=== PATIENT | male | born 1970 | race Caucasian/White ===

== ENCOUNTER 2024-12-20 16:52 | Emergency (ER) | payer MEDICAID ==
[~2024-12-20] VITALS: Ht 170.2 cm; Wt 88.0 kg
[2024-12-20 16:55] VITALS: O2SAT 96
[2024-12-20 17:31] LABS: CLARITY URINE CLEAR (CLEAR); COLOR URINE YELLOW (YELLOW); GLUCOSE URINE NEGATIVE (NEGATIVE); KETONES URINE NEGATIVE (NEGATIVE); LEUKOCYTE ESTERASE URINE NEGATIVE (NEGATIVE); NITRITE URINE NEGATIVE (NEGATIVE); OCCULT BLOOD URINE NEGATIVE (NEGATIVE); PH URINE 5.5 (4.5-8.0); PROTEIN URINE NEGATIVE (NEGATIVE); SPECIFIC GRAVITY URINE 1.003 (1.005-1.030); UROBILINOGEN URINE 0.2 E.U./dL (0.2-1.0)
[2024-12-20 17:43] LABS: *AMPHETAMINES SCREEN URINE NEGATIVE (NEGATIVE); *BARBITURATES SCREEN URINE NEGATIVE (NEGATIVE); *BENZODIAZEPINES SCREEN URINE NEGATIVE (NEGATIVE); *COCAINE SCREEN URINE NEGATIVE (NEGATIVE)
[2024-12-20 17:44] LABS: CANNABINOID URINE SCREEN NEGATIVE (NEGATIVE); ECSTASY MDMA SCREEN URINE NEGATIVE (NEGATIVE); METHADONE URINE SCREEN NEGATIVE (NEGATIVE); OPIATES URINE SCREEN NEGATIVE (NEGATIVE); PHENCYCLIDINE URINE SCREEN NEGATIVE (NEGATIVE)
[2024-12-20] MEDS: SODIUM CHLORIDE 0.9% 1,000 ML IV ONE (18:02)
[2024-12-20] MEDS: KETOROLAC 30MG/ML VIAL IV STA (18:03)
[2024-12-20] MEDS: ACETAMINOPHEN 325MG TABLET PO STA (18:03)
[2024-12-20] MEDS: ONDANSETRON HCL 4MG/2ML INJ IV STA (18:03)
[2024-12-20 18:11] LABS: BASOPHILS % 0.6 % (0.0-2.0); EOSINOPHILS % 3.8 % (0.0-5.0); HEMATOCRIT. 42.2 % (42.0-52.0); HEMOGLOBIN. 14.6 g/dL (14.0-18.0); LYMPHOCYTES % 35.5 % (20.0-50.0); MEAN CORPUSCULAR HEMOGLOBIN 30.6 pg (28.0-32.0); MEAN CORPUSCULAR HGB CONC 34.6 g/dL (31.0-37.0); MEAN CORPUSCULAR VOLUME 88.5 fL (80.0-94.0); MEAN PLATELET VOLUME 6.8 fl (7.4-10.4); MONOCYTES % 7.8 % (2.0-8.0); NEUTROPHILS % 52.3 % (40.0-76.0); PLATELET 250 x1000/uL (130-400); RED BLOOD CELL COUNT 4.77 mill/uL (4.7-6.1); RED CELL DISTRIBUTION WIDTH 14.1 % (11.6-14.6); WHITE BLOOD COUNT 8.3 x1000/uL (4.5-11.0)
[2024-12-20 18:29] LABS: CHLORIDE 100 mEq/L (98-107); POTASSIUM 3.5 mEq/L (3.5-5.1); SODIUM 138 mEq/L (136-145)
[2024-12-20 18:30] LABS: CARBON DIOXIDE 25 mEq/L (21-32)
[2024-12-20 18:31] LABS: CALCIUM 9.1 mg/dL (8.7-10.4)
[2024-12-20 18:35] LABS: CREATININE 0.7 mg/dL (0.6-1.3); GLUCOSE 106 mg/dL (70-105)
[2024-12-20 18:36] LABS: ETHANOL BLOOD 278 mg/dL (<10); TROPONIN I HIGH SENSITIVITY 4 ng/L (3.0-53); UREA NITROGEN BLOOD 11 mg/dL (9-23)
[2024-12-20 18:37] LABS: ACETAMINOPHEN < 2 ug/mL (10-30)
[2024-12-20 20:15] LABS: TROPONIN I HIGH SENSITIVITY 4 ng/L (3.0-53)
[2024-12-21] MEDS: NITROGLYCERIN 0.4MG TABLET SL SL ONE (20:15)
[2024-12-21] MEDS: QUETIAPINE FUMARATE 50MG TABLET PO SCH (21:24)
[2024-12-21 23:14] VITALS: BP 135/87; PULSE 88; RESP 20; TEMP 36.8; O2SAT 97
== END 2024-12-21 23:49 ==
LOC: ER 16:52
DX: R45.851 Suicidal ideations (principal); F20.9 Schizophrenia, unspecified; F32.A Depression, unspecified; I10 Essential (primary) hypertension; Z79.899 Other long term (current) drug therapy; Z87.19 Personal history of other diseases of the digestive system; Z20.822 Contact with and (suspected) exposure to COVID-19
CPT/HCPCS: 80305; 80048; 81003; 80307; 80329; 80320 ×2; 83690; 85025; 84484; 36415 ×2; 74176; 93005; 96361; 96374; 96375; 99285; 87426; J1885; J2405; J7030; Z7610 ×4; A4606; G0480

== ENCOUNTER 2025-01-22 22:45 | Emergency (ER) | payer MEDICAID ==
[~2025-01-22] VITALS: Ht 160 cm; Wt 70.0 kg
[2025-01-22 23:07] VITALS: O2SAT 98
[2025-01-22] MEDS: KETOROLAC 30MG/ML VIAL IV STA (23:18)
[2025-01-22] MEDS: ONDANSETRON HCL 4MG/2ML INJ IV STA (23:18)
[2025-01-22] MEDS ORDERED: LORAZEPAM 2MG/ML INJ IM ONE (23:30)
[2025-01-22] MEDS: HALOPERIDOL LACTATE 5MG/ML VIAL IM ONE (23:30)
[2025-01-22] MEDS: DIPHENHYDRAMINE 50MG/ML VIAL IM ONE (23:30)
[2025-01-22] MEDS: LORAZEPAM 2MG/ML UD SYRINGE IM NR (23:45)
[2025-01-23 00:10] LABS: BASOPHILS % 0.9 % (0.0-2.0); EOSINOPHILS % 3.5 % (0.0-5.0); HEMATOCRIT. 44.4 % (42.0-52.0); HEMOGLOBIN. 15.6 g/dL (14.0-18.0); LYMPHOCYTES % 22.5 % (20.0-50.0); MEAN CORPUSCULAR HEMOGLOBIN 31.8 pg (28.0-32.0); MEAN CORPUSCULAR HGB CONC 35.2 g/dL (31.0-37.0); MEAN CORPUSCULAR VOLUME 90.5 fL (80.0-94.0); MEAN PLATELET VOLUME 7.3 fl (7.4-10.4); MONOCYTES % 11.1 % (2.0-8.0); PLATELET 257 x1000/uL (130-400); RED CELL DISTRIBUTION WIDTH 15.6 % (11.6-14.6); WHITE BLOOD COUNT 7.3 x1000/uL (4.5-11.0)
[2025-01-23 00:12] LABS: CLARITY URINE CLEAR (CLEAR); COLOR URINE YELLOW (YELLOW); GLUCOSE URINE NEGATIVE (NEGATIVE); KETONES URINE NEGATIVE (NEGATIVE); LEUKOCYTE ESTERASE URINE NEGATIVE (NEGATIVE); NITRITE URINE NEGATIVE (NEGATIVE); OCCULT BLOOD URINE NEGATIVE (NEGATIVE); PH URINE 5.5 (4.5-8.0); PROTEIN URINE NEGATIVE (NEGATIVE)
[2025-01-23 00:17] LABS: CHLORIDE 99 mEq/L (98-107); POTASSIUM 4.3 mEq/L (3.5-5.1); SODIUM 134 mEq/L (136-145)
[2025-01-23 00:18] LABS: CARBON DIOXIDE 26 mEq/L (21-32)
[2025-01-23 00:19] LABS: *AMPHETAMINES SCREEN URINE PRESUMPTIVE POSITIVE (NEGATIVE); *BARBITURATES SCREEN URINE NEGATIVE (NEGATIVE); *BENZODIAZEPINES SCREEN URINE NEGATIVE (NEGATIVE); *COCAINE SCREEN URINE NEGATIVE (NEGATIVE); CALCIUM 9.8 mg/dL (8.7-10.4)
[2025-01-23 00:20] LABS: CANNABINOID URINE SCREEN PRESUMPTIVE POSITIVE (NEGATIVE); ECSTASY MDMA SCREEN URINE CONF.TEST INDICATED (NEGATIVE); METHADONE URINE SCREEN NEGATIVE (NEGATIVE); OPIATES URINE SCREEN NEGATIVE (NEGATIVE); PHENCYCLIDINE URINE SCREEN NEGATIVE (NEGATIVE)
[2025-01-23 00:23] LABS: CREATININE 0.7 mg/dL (0.6-1.3); GLUCOSE 83 mg/dL (70-105); UREA NITROGEN BLOOD 7 mg/dL (9-23)
[2025-01-23 00:24] LABS: ETHANOL BLOOD 38 mg/dL (<10)
[2025-01-23 00:25] LABS: ACETAMINOPHEN < 2 ug/mL (10-30); ALANINE AMINOTRANSFERASE 20 IU/L (10-49); ALBUMIN 4.7 g/dL (3.2-4.8); ASPARTATE AMINOTRANSFERASE 34 IU/L (<34); BILIRUBIN DIRECT 0.2 mg/dL (<=3.0)
[2025-01-23 00:26] LABS: BILIRUBIN TOTAL 0.6 mg/dL (0.1-1.0); PROTEIN TOTAL 7.7 g/dL (6.0-8.3)
[2025-01-23] MEDS: SODIUM CHLORIDE 0.9% 1,000 ML IV ONE (01:33)
[2025-01-23] MEDS: KETOROLAC 30MG/ML VIAL IV NR (03:00)
[2025-01-23] MEDS: LORAZEPAM 2MG/ML UD SYRINGE IM NR (03:08)
[2025-01-23] MEDS: HALOPERIDOL LACTATE 5MG/ML VIAL IM NR (03:09)
[2025-01-23] MEDS: DIPHENHYDRAMINE 50MG/ML VIAL IM NR (03:09)
[2025-01-23] MEDS: QUETIAPINE FUMARATE 50MG TABLET PO SCH (10:02)
[2025-01-23 15:30] VITALS: BP 124/81; PULSE 80; RESP 16; TEMP 36.7; O2SAT 99
== END 2025-01-23 16:00 ==
LOC: ER 22:55
DX: R45.851 Suicidal ideations (principal); R10.12 Left upper quadrant pain; F29 Unspecified psychosis not due to a substance or known physiological condition; N28.89 Other specified disorders of kidney and ureter; F19.10 Other psychoactive substance abuse, uncomplicated; F20.9 Schizophrenia, unspecified; I10 Essential (primary) hypertension; Z79.899 Other long term (current) drug therapy; Z87.19 Personal history of other diseases of the digestive system; Z91.148 Patient's other noncompliance with medication regimen for other reason; Z20.822 Contact with and (suspected) exposure to COVID-19
CPT/HCPCS: 80076; 80305; 80048; 81003; 80307; 80329; 80320; 83605; 83690; 85025; 36415; 71045; 74177; 93005; 99285; 87426; 96372; J7030; Z7610; J1200; J1630; J2060; G0480

== ENCOUNTER 2025-01-28 16:00 | Emergency (ER) | payer MEDICAID ==
[~2025-01-28] VITALS: Ht 167.6 cm; Wt 82.0 kg
[2025-01-28 16:07] VITALS: BP 115/62; PULSE 110; RESP 18; TEMP 36.9; O2SAT 99
== END 2025-01-28 18:58 | disposition left against medical advice (07) ==
LOC: ER 16:07
DX: R10.9 Unspecified abdominal pain (principal); Z53.21 Procedure and treatment not carried out due to patient leaving prior to being seen by health care provider

== ENCOUNTER 2025-03-26 21:00 | Emergency (ER) | payer MEDICAID ==
[~2025-03-26] VITALS: Ht 167.6 cm; Wt 77.0 kg
[2025-03-26 21:04] VITALS: O2SAT 98
[2025-03-26 23:01] LABS: BASOPHILS % 0.7 % (0.0-2.0); EOSINOPHILS % 2.7 % (0.0-5.0); HEMATOCRIT. 48.1 % (42.0-52.0); HEMOGLOBIN. 16.5 g/dL (14.0-18.0); LYMPHOCYTES % 26.4 % (20.0-50.0); MEAN PLATELET VOLUME 6.9 fl (7.4-10.4); MONOCYTES % 11.3 % (2.0-8.0); NEUTROPHILS % 58.9 % (40.0-76.0); PLATELET 220 x1000/uL (130-400); RED BLOOD CELL COUNT 5.32 mill/uL (4.7-6.1); RED CELL DISTRIBUTION WIDTH 17.0 % (11.6-14.6)
[2025-03-26 23:15] LABS: CREATININE 0.7 mg/dL (0.6-1.3); ETHANOL BLOOD 62 mg/dL (<10); UREA NITROGEN BLOOD 5 mg/dL (9-23)
[2025-03-26 23:16] LABS: TROPONIN I HIGH SENSITIVITY 5 ng/L (3.0-53)
[2025-03-26 23:17] LABS: ASPARTATE AMINOTRANSFERASE 30 IU/L (<34); BILIRUBIN DIRECT 0.6 mg/dL (<=3.0); BILIRUBIN TOTAL 1.4 mg/dL (0.1-1.0); PROTEIN TOTAL 7.8 g/dL (6.0-8.3)
[2025-03-27 06:04] LABS: CLARITY URINE CLEAR (CLEAR); COLOR URINE YELLOW (YELLOW); GLUCOSE URINE NEGATIVE (NEGATIVE); KETONES URINE TRACE (NEGATIVE); LEUKOCYTE ESTERASE URINE NEGATIVE (NEGATIVE); NITRITE URINE NEGATIVE (NEGATIVE); OCCULT BLOOD URINE NEGATIVE (NEGATIVE); PH URINE 6.5 (4.5-8.0); PROTEIN URINE NEGATIVE (NEGATIVE); SPECIFIC GRAVITY URINE 1.007 (1.005-1.030); UROBILINOGEN URINE 4.0 E.U./dL (0.2-1.0)
[2025-03-27 06:23] LABS: *AMPHETAMINES SCREEN URINE PRESUMPTIVE POSITIVE (NEGATIVE); *BARBITURATES SCREEN URINE NEGATIVE (NEGATIVE); *BENZODIAZEPINES SCREEN URINE NEGATIVE (NEGATIVE); *COCAINE SCREEN URINE NEGATIVE (NEGATIVE); CANNABINOID URINE SCREEN PRESUMPTIVE POSITIVE (NEGATIVE); ECSTASY MDMA SCREEN URINE NEGATIVE (NEGATIVE); METHADONE URINE SCREEN NEGATIVE (NEGATIVE); OPIATES URINE SCREEN NEGATIVE (NEGATIVE); PHENCYCLIDINE URINE SCREEN NEGATIVE (NEGATIVE)
[2025-03-27 06:37] LABS: BACTERIA URINE NONE SEEN; RBC URINE NONE SEEN /hpf (0-2); SQUAMOUS EPITHELIAL CELL URINE NONE SEEN /lpf (RARE/1+); WBC URINE 0-2 /hpf (0-2)
[2025-03-27 13:55] VITALS: BP 141/80; PULSE 92; RESP 17; TEMP 36.7; O2SAT 100
[2025-03-27] MEDS ORDERED: QUETIAPINE FUMARATE 50MG TABLET PO SCH (21:00)
== END 2025-03-27 14:10 | disposition short-term general hospital (02) ==
LOC: ER 21:00
DX: R10.9 Unspecified abdominal pain (principal); F12.10 Cannabis abuse, uncomplicated; F15.10 Other stimulant abuse, uncomplicated; G40.909 Epilepsy, unspecified, not intractable, without status epilepticus; I10 Essential (primary) hypertension; Z20.822 Contact with and (suspected) exposure to COVID-19
CPT/HCPCS: 36415; 80048; 80076; 80305; 80307; 80320; 80329; 81003; 83735; 84484; 85025; 87426; 93005; 99285; G0480

== ENCOUNTER 2025-04-17 18:09 | Emergency (ER) | payer MEDICAID ==
[~2025-04-17] VITALS: Ht 167.6 cm; Wt 86.0 kg
[2025-04-17 18:15] VITALS: O2SAT 98
[2025-04-17 19:16] LABS: BASOPHILS % 0.6 % (0.0-2.0); EOSINOPHILS % 3.3 % (0.0-5.0); HEMATOCRIT. 43.3 % (42.0-52.0); HEMOGLOBIN. 15.2 g/dL (14.0-18.0); LYMPHOCYTES % 31.6 % (20.0-50.0); MEAN PLATELET VOLUME 6.6 fl (7.4-10.4); MONOCYTES % 8.5 % (2.0-8.0); NEUTROPHILS % 56.0 % (40.0-76.0); PLATELET 315 x1000/uL (130-400); RED BLOOD CELL COUNT 4.89 mill/uL (4.7-6.1); RED CELL DISTRIBUTION WIDTH 15.5 % (11.6-14.6)
[2025-04-17 19:37] LABS: CREATININE 0.6 mg/dL (0.6-1.3); UREA NITROGEN BLOOD < 5 mg/dL (9-23)
[2025-04-17 19:42] LABS: ETHANOL BLOOD 88 mg/dL (<10)
[2025-04-17] MEDS ORDERED: POTASSIUM CHLORIDE 20MEQ/PACKET PO ONE (20:15)
[2025-04-17] MEDS: POTASSIUM CHLORIDE 20MEQ/PACKET PO NR (22:15)
[2025-04-17 22:45] LABS: *AMPHETAMINES SCREEN URINE PRESUMPTIVE POSITIVE (NEGATIVE); *BARBITURATES SCREEN URINE NEGATIVE (NEGATIVE); *BENZODIAZEPINES SCREEN URINE NEGATIVE (NEGATIVE); *COCAINE SCREEN URINE NEGATIVE (NEGATIVE); CANNABINOID URINE SCREEN PRESUMPTIVE POSITIVE (NEGATIVE); ECSTASY MDMA SCREEN URINE NEGATIVE (NEGATIVE); METHADONE URINE SCREEN NEGATIVE (NEGATIVE); OPIATES URINE SCREEN NEGATIVE (NEGATIVE); PHENCYCLIDINE URINE SCREEN NEGATIVE (NEGATIVE)
[2025-04-17 23:32] LABS: ASPARTATE AMINOTRANSFERASE 19 IU/L (<34); BILIRUBIN DIRECT 0.2 mg/dL (<=3.0); BILIRUBIN TOTAL 0.4 mg/dL (0.1-1.0); PROTEIN TOTAL 7.0 g/dL (6.0-8.3)
[2025-04-18 06:00] VITALS: BP 114/62; PULSE 78; RESP 18; TEMP 36.8; O2SAT 100
== END 2025-04-18 07:01 ==
LOC: ER 18:09
DX: R45.851 Suicidal ideations (principal); I10 Essential (primary) hypertension; F20.9 Schizophrenia, unspecified; F15.10 Other stimulant abuse, uncomplicated; F10.229 Alcohol dependence with intoxication, unspecified; Z79.899 Other long term (current) drug therapy; Z20.822 Contact with and (suspected) exposure to COVID-19; Y90.4 Blood alcohol level of 80-99 mg/100 ml
CPT/HCPCS: 36415; 80048; 80076; 80305; 80307; 80320; 80329; 85025; 87426; 99285; G0480

== ENCOUNTER 2025-04-26 01:21 | Emergency (ER) | payer MEDICAID ==
[~2025-04-26] VITALS: Ht 172.7 cm; Wt 100.0 kg
[2025-04-26 01:26] VITALS: O2SAT 98
[2025-04-26 02:12] LABS: BASOPHILS % 0.7 % (0.0-2.0); EOSINOPHILS % 2.3 % (0.0-5.0); HEMATOCRIT. 47.8 % (42.0-52.0); HEMOGLOBIN. 16.2 g/dL (14.0-18.0); LYMPHOCYTES % 32.2 % (20.0-50.0); MEAN PLATELET VOLUME 6.6 fl (7.4-10.4); MONOCYTES % 12.9 % (2.0-8.0); NEUTROPHILS % 51.9 % (40.0-76.0); PLATELET 254 x1000/uL (130-400); RED BLOOD CELL COUNT 5.36 mill/uL (4.7-6.1); RED CELL DISTRIBUTION WIDTH 16.2 % (11.6-14.6)
[2025-04-26 02:27] LABS: CREATININE 0.7 mg/dL (0.6-1.3); UREA NITROGEN BLOOD < 5 mg/dL (9-23)
[2025-04-26 02:28] LABS: TROPONIN I HIGH SENSITIVITY < 4 ng/L (3.0-53)
[2025-04-26 02:29] LABS: ASPARTATE AMINOTRANSFERASE 33 IU/L (<34); BILIRUBIN DIRECT 0.1 mg/dL (<=3.0); BILIRUBIN TOTAL 0.4 mg/dL (0.1-1.0); PROTEIN TOTAL 7.7 g/dL (6.0-8.3)
[2025-04-26] MEDS: ONDANSETRON HCL 4MG/2ML INJ IV ONE (02:52)
[2025-04-26] MEDS: MORPHINE SULFATE 4 MG/ML INJ (FOR IV/IM USE) IV ONE (02:53)
[2025-04-26] MEDS: SODIUM CHLORIDE 0.9% 1,000 ML IV ONE (02:53)
[2025-04-26 03:28] LABS: CLARITY URINE CLEAR (CLEAR); COLOR URINE YELLOW (YELLOW); GLUCOSE URINE NEGATIVE (NEGATIVE); KETONES URINE NEGATIVE (NEGATIVE); LEUKOCYTE ESTERASE URINE NEGATIVE (NEGATIVE); NITRITE URINE NEGATIVE (NEGATIVE); OCCULT BLOOD URINE NEGATIVE (NEGATIVE); PH URINE 5.5 (4.5-8.0); PROTEIN URINE NEGATIVE (NEGATIVE); SPECIFIC GRAVITY URINE 1.006 (1.005-1.030); UROBILINOGEN URINE 0.2 E.U./dL (0.2-1.0)
[2025-04-26 03:39] LABS: *AMPHETAMINES SCREEN URINE PRESUMPTIVE POSITIVE (NEGATIVE); *BARBITURATES SCREEN URINE NEGATIVE (NEGATIVE); *BENZODIAZEPINES SCREEN URINE NEGATIVE (NEGATIVE)
[2025-04-26 03:40] LABS: *COCAINE SCREEN URINE PRESUMPTIVE POSITIVE (NEGATIVE); CANNABINOID URINE SCREEN PRESUMPTIVE POSITIVE (NEGATIVE); ECSTASY MDMA SCREEN URINE NEGATIVE (NEGATIVE); METHADONE URINE SCREEN NEGATIVE (NEGATIVE); OPIATES URINE SCREEN NEGATIVE (NEGATIVE); PHENCYCLIDINE URINE SCREEN NEGATIVE (NEGATIVE)
[2025-04-26] MEDS: IOHEXOL-300 100 ML BOTTLE ONE (04:14)
[2025-04-26] MEDS: MAGNESIUM/ALUMINUM HYDROXIDE/SIMETHICONE 30ML UDC PO NR (04:17)
[2025-04-26] MEDS ORDERED: MAG355OR21 MT (05:29)
[2025-04-26] MEDS ORDERED: ONDA4TAB50 MT (05:29)
[2025-04-26] MEDS ORDERED: ACET-2708 MT (05:29)
[2025-04-26 05:47] VITALS: BP 134/76; PULSE 100; RESP 22; TEMP 37; O2SAT 98
== END 2025-04-26 05:48 | disposition home or self-care (01) ==
LOC: ER 01:21 → CMPBEDREQ 08:22
DX: K29.70 Gastritis, unspecified, without bleeding (principal); F10.20 Alcohol dependence, uncomplicated; F15.90 Other stimulant use, unspecified, uncomplicated; Z87.19 Personal history of other diseases of the digestive system; Z79.899 Other long term (current) drug therapy; Y90.5 Blood alcohol level of 100-119 mg/100 ml
CPT/HCPCS: 80076; 80305; 80048; 81003; 82150; 83690; 85025; 84484; 36415; 74177; 93005; 96361; 96374; 96375; 99285; G0480; Q9967; J2405; J2270; J7030; Z7610 ×3; 80320

== ENCOUNTER 2025-06-13 20:51 | Emergency (ER) | payer MEDICAID ==
[~2025-06-13] VITALS: Ht 167.6 cm; Wt 90.0 kg
[~2025-06-13 20:51] MED LIST: ACET-2708 MT; MAG355OR21 MT; ONDA4TAB50 MT
[2025-06-13 20:59] VITALS: TEMP 98.7; O2SAT 100
[2025-06-13] MEDS: ONDANSETRON 4MG ODT PO ONE (21:15)
[2025-06-13] MEDS: FAMOTIDINE 20MG TABLET PO ONE (21:15)
[2025-06-13] MEDS: MAGNESIUM/ALUMINUM HYDROXIDE/SIMETHICONE 30ML UDC PO ONE (21:15)
[2025-06-13 21:38] LABS: BASOPHILS % 0.4 % (0.0-2.0); EOSINOPHILS % 0.7 % (0.0-5.0); HEMATOCRIT. 48.4 % (42.0-52.0); HEMOGLOBIN. 16.6 g/dL (14.0-18.0); LYMPHOCYTES % 12.6 % (20.0-50.0); MONOCYTES % 8.5 % (2.0-8.0); NEUTROPHILS % 77.8 % (40.0-76.0); RED BLOOD CELL COUNT 5.45 mill/uL (4.7-6.1); RED CELL DISTRIBUTION WIDTH 14.6 % (11.6-14.6)
[2025-06-13 21:50] LABS: CREATININE 0.8 mg/dL (0.6-1.3); ETHANOL BLOOD 13 mg/dL (<10); UREA NITROGEN BLOOD 6 mg/dL (9-23)
[2025-06-13 21:52] LABS: ASPARTATE AMINOTRANSFERASE 29 IU/L (<34); BILIRUBIN DIRECT 0.2 mg/dL (<=3.0); BILIRUBIN TOTAL 0.5 mg/dL (0.1-1.0); PROTEIN TOTAL 8.1 g/dL (6.0-8.3)
[2025-06-13 22:06] LABS: MEAN PLATELET VOLUME 7.1 fl (7.4-10.4); PLATELET 268 x1000/uL (130-400)
[2025-06-13] MEDS: SODIUM CHLORIDE 0.9% 1,000 ML IV ONE (22:15)
[2025-06-13 22:33] LABS: *AMPHETAMINES SCREEN URINE PRESUMPTIVE POSITIVE (NEGATIVE); *BARBITURATES SCREEN URINE NEGATIVE (NEGATIVE); *BENZODIAZEPINES SCREEN URINE PRESUMPTIVE POSITIVE (NEGATIVE); *COCAINE SCREEN URINE PRESUMPTIVE POSITIVE (NEGATIVE); CANNABINOID URINE SCREEN PRESUMPTIVE POSITIVE (NEGATIVE); CLARITY URINE CLEAR (CLEAR); COLOR URINE YELLOW (YELLOW); ECSTASY MDMA SCREEN URINE NEGATIVE (NEGATIVE); GLUCOSE URINE NEGATIVE (NEGATIVE); KETONES URINE NEGATIVE (NEGATIVE); METHADONE URINE SCREEN NEGATIVE (NEGATIVE); OPIATES URINE SCREEN NEGATIVE (NEGATIVE); PH URINE 7.0 (4.5-8.0); PHENCYCLIDINE URINE SCREEN NEGATIVE (NEGATIVE); PROTEIN URINE NEGATIVE (NEGATIVE); SPECIFIC GRAVITY URINE 1.008 (1.005-1.030)
[2025-06-13 22:34] LABS: LEUKOCYTE ESTERASE URINE NEGATIVE (NEGATIVE); NITRITE URINE NEGATIVE (NEGATIVE); OCCULT BLOOD URINE NEGATIVE (NEGATIVE); UROBILINOGEN URINE 0.2 E.U./dL (0.2-1.0)
[2025-06-13 22:45] VITALS: O2SAT 97
[2025-06-13 23:18] VITALS: BP 123/75; PULSE 109; RESP 18
[2025-06-13] MEDS: KETOROLAC 30MG/ML VIAL IV ONE (23:18)
[2025-06-14] MEDS ORDERED: IBUP-1455 MT (00:20)
[2025-06-14] MEDS ORDERED: FAMO-135 MT (00:20)
[2025-06-14] MEDS ORDERED: FLUO20CA35 MT (01:06)
[2025-06-14] MEDS ORDERED: HALO5TAB2 MT (01:06)
[2025-06-14] MEDS ORDERED: LURA20TA MT (01:06)
[2025-06-14] MEDS ORDERED: BUSP10TA4 MT (01:06)
== END 2025-06-14 01:22 | disposition home or self-care (01) ==
LOC: ER 20:51
DX: K29.70 Gastritis, unspecified, without bleeding (principal); K80.20 Calculus of gallbladder without cholecystitis without obstruction; I10 Essential (primary) hypertension; F31.9 Bipolar disorder, unspecified; F20.9 Schizophrenia, unspecified; F15.10 Other stimulant abuse, uncomplicated; F10.20 Alcohol dependence, uncomplicated; F17.200 Nicotine dependence, unspecified, uncomplicated; Z87.19 Personal history of other diseases of the digestive system
CPT/HCPCS: 99285; 74176; 96374; 96361; 80076; 80305; 80048; 81003; 83690; 85025; 36415; J1885; G0480; Q0162; J7030; 80320

== ENCOUNTER 2025-06-14 02:26 | Emergency (ER) | payer MEDICAID ==
[~2025-06-14] VITALS: Ht 172.7 cm; Wt 82.0 kg
[~2025-06-14 02:26] MED LIST changes: +BUSP10TA4 MT; +FAMO-135 MT; +FLUO20CA35 MT; +HALO5TAB2 MT; +IBUP-1455 MT; +LURA20TA MT
[2025-06-14 02:30] VITALS: O2SAT 99
[2025-06-14 05:32] LABS: BASOPHILS % 0.2 % (0.0-2.0); EOSINOPHILS % 1.9 % (0.0-5.0); HEMATOCRIT. 47.6 % (42.0-52.0); HEMOGLOBIN. 16.2 g/dL (14.0-18.0); LYMPHOCYTES % 18.2 % (20.0-50.0); MEAN PLATELET VOLUME 6.9 fl (7.4-10.4); MONOCYTES % 11.5 % (2.0-8.0); NEUTROPHILS % 68.2 % (40.0-76.0); PLATELET 275 x1000/uL (130-400); RED BLOOD CELL COUNT 5.38 mill/uL (4.7-6.1); RED CELL DISTRIBUTION WIDTH 14.7 % (11.6-14.6)
[2025-06-14] MEDS: CHLORDIAZEPOXIDE 10MG CAPSULE PO ONE (06:13)
[2025-06-14 07:12] LABS: CLARITY URINE CLEAR (CLEAR); COLOR URINE YELLOW (YELLOW); PH URINE 6.5 (4.5-8.0); SPECIFIC GRAVITY URINE 1.006 (1.005-1.030)
[2025-06-14 07:13] LABS: GLUCOSE URINE NEGATIVE (NEGATIVE); KETONES URINE NEGATIVE (NEGATIVE); LEUKOCYTE ESTERASE URINE NEGATIVE (NEGATIVE); NITRITE URINE NEGATIVE (NEGATIVE); OCCULT BLOOD URINE NEGATIVE (NEGATIVE); PROTEIN URINE NEGATIVE (NEGATIVE); UROBILINOGEN URINE 0.2 E.U./dL (0.2-1.0)
[2025-06-14 07:32] LABS: *AMPHETAMINES SCREEN URINE PRESUMPTIVE POSITIVE (NEGATIVE); *BARBITURATES SCREEN URINE NEGATIVE (NEGATIVE); *BENZODIAZEPINES SCREEN URINE PRESUMPTIVE POSITIVE (NEGATIVE); *COCAINE SCREEN URINE PRESUMPTIVE POSITIVE (NEGATIVE)
[2025-06-14 07:33] LABS: CANNABINOID URINE SCREEN PRESUMPTIVE POSITIVE (NEGATIVE); ECSTASY MDMA SCREEN URINE NEGATIVE (NEGATIVE); METHADONE URINE SCREEN NEGATIVE (NEGATIVE); OPIATES URINE SCREEN NEGATIVE (NEGATIVE); PHENCYCLIDINE URINE SCREEN NEGATIVE (NEGATIVE)
[2025-06-14 07:52] LABS: UREA NITROGEN BLOOD 6 mg/dL (9-23)
[2025-06-14 07:53] LABS: BILIRUBIN TOTAL 0.5 mg/dL (0.1-1.0); CREATININE 0.7 mg/dL (0.6-1.3); PROTEIN TOTAL 7.5 g/dL (6.0-8.3)
[2025-06-14 07:54] LABS: ASPARTATE AMINOTRANSFERASE 21 IU/L (<34)
[2025-06-14] MEDS: ARIPIPRAZOLE 5MG TABLET PO SCH (10:49)
[2025-06-14 15:41] VITALS: BP 153/70; PULSE 98; RESP 16; TEMP 36.9; O2SAT 99
== END 2025-06-14 15:42 ==
LOC: ER2 02:26 → ER 15:42
DX: R45.851 Suicidal ideations (principal); R45.850 Homicidal ideations; F19.10 Other psychoactive substance abuse, uncomplicated; F25.1 Schizoaffective disorder, depressive type; F31.9 Bipolar disorder, unspecified; F10.20 Alcohol dependence, uncomplicated; I10 Essential (primary) hypertension; F15.90 Other stimulant use, unspecified, uncomplicated; Z79.899 Other long term (current) drug therapy; Z87.19 Personal history of other diseases of the digestive system; Z20.822 Contact with and (suspected) exposure to COVID-19; Y90.0 Blood alcohol level of less than 20 mg/100 ml
CPT/HCPCS: 99285; 87426; 80076; 80048; 81003; 80307; 85025; 36415; G0480; 80305; 80320; 80329